=== PATIENT | female | born 1935 | race Caucasian/White ===

== ENCOUNTER → 2019-08-02 | Outpatient (CLI) | payer MEDICARE ==
[2016-04-26 15:43] VITALS: BP 178/76
[~2019-08-02] MED LIST: ATOR20TA58 PO; CALC500T30 PO; FURO80TA3 PO; HEPARIN PF 500 UNIT/5 ML DISP.SYRIN. IVP ONE; HEPARIN PF 500 UNIT/5 ML DISP.SYRIN. ONE; HYDR-2761 PO; INSU100I11 SQ; METF500T16 PO; METO50TA6 PO; NITR0.4T22 SL; NPH,100V5 SQ; POTA20TA4 PO; REGADENOSON 0.4 MG/5 ML DISP.SYRIN. IV ONE; WARF-78 PO
--- NOTE | 2019-08-02 13:45 | RAD ---
MR#: [id number] Date of Study: 08/02/2019 Ordering Physician: MILLY CAMACHO, Referring Physician: SERVANDO WHITEHEAD Tech: JESSIKA Suarez APPROVED REPORT Test Type: Pharmacological Stress Nurse/Tech: SCOTT Garzon Test Indications: chest pain Cardiac History: See Electronic Medical Record, HTN, HLD, stent, Afib Medications: See Electronic Medical Record Medical History: See Electronic Medical Record Resting ECG: Afib Resting Heart Rate: 66 bpm Resting Blood Pressure: 133/60mmHg Pretest Chest Pain: No chest pain Nurse/Tech Notes Irregular rate, lungs clear/diminished bases, O2 @ 2L per NC, sats 100%. Consent: The procedure was explained to the patient in lay terms. Informed consent was witnessed. Juan Miguel eout was entered into [employer]. History and Stress Test performed by Holden Franco, RT (R) (N) Pharm. Details Pharmacologic stress testing was performed using 0.4mg per 5ml of regadenoson given intravenously ove r 7-10 seconds. Stress Symptoms Pt c/o slight chest tightness during initial pahse, resolved after a couple minutes. POST EXERCISE Reason for Termination: Infusion complete Target HR: No Max HR: 73 bpm Max Blood Pressure: 154/51mmHg Blood Pressure response to exercise: Normal blood pressure response during stress. Heart Rate response to exercise: Normal response during stress Chest Pain: Yes. slight chest tightness Arrhythmia: . Afib per monitor ST Change: No. INTERPRETATION Stress EKG Conclusion: Baseline EKG showed atrial fibrillation. Nondiagnostic changes at peak stress. No other arrhythmias. Imaging Protocol IMAGE PROTOCOL: Rest Tc-99m/stress Tc-99m 1 day Rest: Stress: Viability: Radiopharm.Tc99m EarpmxwhgAm87d Sestamibi [id number] 33mCi Duration 15min. 10min. Img Date 08/02/2019 08/02/2019 Inj-Img [id number]. 60min. Rest Admin Site:IV R CHEST PORTAdministrator:AISHA Garza, ARRT (R)(N) Stress Admin Site: IV R CHEST PORTAdministrator: Holedn Franco, RT (R)(N) STRESS DATA End Diast. Vol.112.0mlAv. Heart Rate62.0bpm End Syst. Vol.28.0mlCO Index BSA0.0L/min Myocardial Fqyg708.0gEject. Ndlorfoq39.0% Stress Rates Pk. Fill Rate2.94EDV/secLVtime Pk. Fill 193.73msec Pk. Empty Rate3.47ESV/secLVtime Pk. Robxf159.87msec 3 Pk. Fill1.71EDV/sec Stress Scores Regional WT0.00Summed WT0.00 Regional WM0.00Summed WM1.00 Study quality was good. Left Ventricular size was Normal at Rest and Stress. Lung uptake was . Left Ventricular ejection fraction is 75%. The rest and stress images show normal perfusion, normal contraction and thickening. LV Perf. Quant 17 Seg. SSS5.00 17 Seg. SRS4.00 17 Seg. SDS2.00 Stress Defect Extent (% LAD)1.90Rest Defect Extent (% LAD)0.00Rev. Defect Extent (% LAD)1.90 Stress Defect Extent (% LCX) 30.00Rest Defect Extent (% LCX)12.50Rev. Defect Extent (% LCX)23.80 Stress Defect Extent (% RCA)0.00Rest Defect Extent (% RCA)4.40Rev. Defect Extent (% RCA)0.00 Stress Defect Extent (% MAXIMILIANO)10.40Rest Defect Extent (% MAXIMILIANO)4.80Rev. Defect Extent (% MAXIMILIANO)7.60 Conclusion 1. Regadenoson cardioisotope stress test did not show any evidence of ischemia or infarct. 2. Normal left ventricular systolic function with ejection fraction calculated at 75%. 3. Low risk for cardiac events. Signed by : Cruz Ramirez, Electronically Approved : 08/02/2019 13:45:10
== END | disposition home or self-care (01) ==
LOC: NM 08:55
PROVIDERS: ATTEND Internal Medicine Cardiovascular Disease
DX: I48.91 Unspecified atrial fibrillation (principal); I10 Essential (primary) hypertension; E78.5 Hyperlipidemia, unspecified
CPT/HCPCS: 78452; 93017; A9500; J2785